=== PATIENT | male | born 1950 | race Two or more races ===

== ENCOUNTER 2022-06-03 06:00 | Day surgery (SDC) | payer OTHER | END 2022-06-03 11:00 | disposition home or self-care (01) | LOC: AMB-ENDOS 06:00 | PROVIDERS: ATTEND Colon & Rectal Surgery | DX: K63.5 Polyp of colon (principal); Z20.822 Contact with and (suspected) exposure to COVID-19; I10 Essential (primary) hypertension ==

== ENCOUNTER 2022-07-31 07:13 | Day surgery (SDC) | payer OTHER ==
[~2022-07-31] VITALS: Ht 160 cm; Wt 73.9 kg
[~2022-07-31 07:13] MED LIST: AZOPT10 ML; HYDRODIURIL12.5 MG PO; LEVOBUNOLOL HCL5 ML; LIPITOR20 MG PO; LUMIGAN2.5 M1; NORVASC10 MG PO
== END 2022-07-31 17:30 | disposition home or self-care (01) ==
LOC: CIR.AMB 07:13
PROVIDERS: ATTEND Colon & Rectal Surgery
DX: K66.0 Peritoneal adhesions (postprocedural) (postinfection) (principal); K63.9 Disease of intestine, unspecified; K63.5 Polyp of colon; R19.4 Change in bowel habit; K64.8 Other hemorrhoids; K57.30 Diverticulosis of large intestine without perforation or abscess without bleeding; I10 Essential (primary) hypertension; F17.200 Nicotine dependence, unspecified, uncomplicated; Z12.12 Encounter for screening for malignant neoplasm of rectum; Z80.0 Family history of malignant neoplasm of digestive organs; Z20.822 Contact with and (suspected) exposure to COVID-19